=== PATIENT | female | born 1975 | race Caucasian/White ===

== ENCOUNTER 2023-02-10 09:48 | Emergency (ER) | payer BC, OTHER ==
[2023-02-10 10:50] LABS: #Eosinphils 0.1 10x3/uL (0.0-0.5); #Monocytes 0.4 10x3/uL (0.0-1.1); #Neutrophils 4.8 10x3/uL (1.5-8.4); %Basophils 0.6 % (0.0-2.0); %Eosinophils 0.8 % (0.0-6.0); %Neutrophils 67.5 % (40.0-75.0); Mean Corpuscular HGB CONC 33.2 g/dL (32.0-36.0); Mean Corpuscular Hemoglobin 30.4 pg (27.0-33.0); Mean Corpuscular Volume 91.6 fl (81.6-98.3); Platelet Count 266 10x3/uL (150-450); RBC Distribution Width 13.1 % (11.5-14.5); Red Blood Cell (RBC) Count 4.28 10x6/uL (3.90-5.03); White Blood Cell (WBC) Count 7.1 10x3/uL (3.5-10.5)
[2023-02-10 11:09] LABS: SARS-CoV-2 NAA Rapid Test Not Detected (NotDetected)
[2023-02-10 11:10] LABS: ALT (SGPT) 15 U/L (8-55); AST (SGOT) 21 U/L (5-34); Albumin 4.5 g/dL (3.5-5.0); Alkaline Phosphatase 63 U/L (40-110); Anion Gap 15 mmol/L (10-20); BUN (Urea Nitrogen) 17 mg/dL (7.0-18.7); Bilirubin, Total 0.4 mg/dL (0.2-1.2); Calc. Creatinine Clearance 0 mL/min (70-130); Calcium 9.2 mg/dL (7.8-10.44); Carbon Dioxide 23 mmol/L (22-29); Chloride 106 mmol/L (98-107); Estimated GFR 89; Globulin 2.5 g/dL (2.4-3.5); Glucose 92 mg/dL (70-105); Magnesium 2.2 mg/dL (1.6-2.6); Potassium 4.8 mmol/L (3.5-5.1); Sodium 139 mmol/L (136-145)
[2023-02-10 12:33] LABS: Troponin I Less than 0.010 ng/mL (< 0.028)
== END 2023-02-10 12:53 | disposition home or self-care (01) ==
LOC: CSHERS 09:48
DX: R07.9 Chest pain, unspecified (principal); R06.00 Dyspnea, unspecified; Z20.822 Contact with and (suspected) exposure to COVID-19
CPT/HCPCS: 71045; 80053; 83735; 84484; 85025; 85379; 93005

== ENCOUNTER 2023-07-10 14:57 | Outpatient (CLI) | payer BC, OTHER | END 2023-07-10 14:58 | disposition home or self-care (01) | LOC: CSHMAMMO 14:57 | PROVIDERS: ATTEND Internal Medicine | DX: Z53.9 Procedure and treatment not carried out, unspecified reason (principal) ==

== ENCOUNTER 2023-07-16 07:42 | Outpatient (CLI) | payer BC, OTHER | END 2023-07-16 07:43 | disposition home or self-care (01) | LOC: CSHCP 07:42 | PROVIDERS: ATTEND Internal Medicine | DX: J45.40 Moderate persistent asthma, uncomplicated (principal); R94.2 Abnormal results of pulmonary function studies | CPT/HCPCS: 94060; 94726; 94729; 94760 ==

== ENCOUNTER 2025-07-27 13:22 | Outpatient (CLI) | payer OTHER | END 2025-07-27 13:23 | disposition home or self-care (01) | LOC: CSHULT 13:22 | PROVIDERS: ATTEND Internal Medicine | DX: N93.9 Abnormal uterine and vaginal bleeding, unspecified (principal); N85.2 Hypertrophy of uterus; R93.89 Abnormal findings on diagnostic imaging of other specified body structures; D25.9 Leiomyoma of uterus, unspecified | CPT/HCPCS: 76856 ==